=== PATIENT | female | born 1990 | race Two or more races ===

== ENCOUNTER 2019-11-11 08:42 | Outpatient (CLI) | payer OTHER | END 2019-11-11 08:53 | disposition home or self-care (01) | LOC: LAB 08:42 | DX: E04.1 Nontoxic single thyroid nodule (principal); R53.81 Other malaise ==

== ENCOUNTER 2019-11-12 09:18 | Outpatient (CLI) | payer OTHER | END 2019-11-12 09:19 | disposition home or self-care (01) | LOC: SONOGRAMA 09:18 | DX: E04.1 Nontoxic single thyroid nodule (principal); R22.1 Localized swelling, mass and lump, neck ==

== ENCOUNTER 2020-05-08 10:43 | Outpatient (CLI) | payer OTHER | END 2020-05-08 10:46 | disposition home or self-care (01) | LOC: SONOGRAMA 10:43 | PROVIDERS: ATTEND Pathology Anatomic Pathology & Clinical Pathology | DX: R22.1 Localized swelling, mass and lump, neck (principal) ==